=== PATIENT | male | born 1955 | race Caucasian/White ===

== ENCOUNTER 2017-12-14 12:10 | Observation (INO) | payer SELFPAY ==
[2017-12-11 12:46] VITALS: BMI 15.0
[~2017-12-14] VITALS: Ht 170.2 cm; Wt 44.5 kg
[2017-12-14] VITALS (9 sets, daily range): BP systolic 110–136; BP diastolic 76–90; PULSE 76–99; TEMP 36.5–36.9; O2SAT 95–100
[~2017-12-14 12:10] MED LIST: ASPITAB71 PO; FOLI1TAB8 PO; IBUP-103 PO; LACTATED RINGER'S 1000ML 1,000 ML IV SCH; MULT-506 PO; NUTR-977 PO; OXYC-90 PO; PANT40TA PO; THIA100T10 PO
--- NOTE | 2017-12-14 14:18 | History & Physical Bridge Note ---
H&P Re-Evaluation Bridge Note: I have examined the patient, reviewed the History & Physical and in the interval since the performance of the History & Physical I have noted the following changes of clinical significance: No changes noted at bedside all questions answered wants to go home after procedure if possible
[2017-12-14] MEDS ORDERED: NEOSTIGMINE METHYLSULFATE 5 MG/5 ML SYR ONE (14:30)
[2017-12-14] MEDS ORDERED: PROPOFOL IV EMULSION 10 MG/ML 20 ML VIAL ONE (14:30)
[2017-12-14] MEDS ORDERED: DEXAMETHASONE SOD INJ 4 MG/ML VIAL ONE (14:30)
[2017-12-14] MEDS ORDERED: ONDANSETRON INJ 2 MG/ML 2 ML VIAL ONE (14:30)
[2017-12-14] MEDS ORDERED: LIDOCAINE HCL 2% 2 ML VIAL (20MG/ML) ONE (14:30)
[2017-12-14] MEDS ORDERED: GLYCOPYRROLATE INJ 0.2 MG/ML VIAL ONE (14:30)
[2017-12-14] MEDS ORDERED: MIDAZOLAM HCL 1 MG/ML 2ML VIAL ONE (14:31)
[2017-12-14] MEDS ORDERED: FENTANYL CITRATE INJ 50 MCG/1 ML 2 ML VIAL ONE ×3 (14:31→16:49)
[2017-12-14] MEDS ORDERED: BUPIVACAINE 0.5 % 5 MG/1 ML PF 10ML VIAL ONE (14:43)
[2017-12-14] MEDS ORDERED: ALBUMIN HUMAN 5% 12.5 GM/250 ML VIAL IV ONE (15:02)
--- NOTE | 2017-12-14 16:14 | [facility] Post Operative Brief Note ---
Immediate Operative Summary Operative Date Dec 14, 2017. Pre-Operative Diagnosis Abdominal mass Post-Operative Diagnosis inflamatory changes pancreas and ant stomach Procedure(s) Performed exp laparoscopy, peritoneal washing biopsy tayler hepatis node, biopsy pancreatic necrosis and fibrotuic tissue ant stomach greater curvature Surgeon Dr. Garcia Legal Practice Manager Surgeon(s) Justin Dean PA-C Estimated Blood Loss 50cc Findings See Below see post op Specimens Frozen #1 Lymph node tayler hepatis, picked up at 1527
[2017-12-14] MEDS ORDERED: MoRPHine SULFATE 2 MG/ML CARP IV PRN (16:30)
[2017-12-14] MEDS ORDERED: ONDANSETRON INJ 2 MG/ML 2 ML VIAL IV PRN ×2 (16:30→16:45)
[2017-12-14] MEDS ORDERED: ESMOLOL HCL 10 MG/ML 10 ML VIAL ONE (16:44)
[2017-12-14] MEDS ORDERED: ATROPINE SULFATE 0.1 MG/ML 5ML SYR IV PRN (16:45)
[2017-12-14] MEDS ORDERED: FENTANYL CITRATE INJ 50 MCG/1 ML 2 ML VIAL IV PRN (16:45)
[2017-12-14] MEDS ORDERED: NALOXONE HCL 0.4 MG/1 ML VIAL/CARP IV PRN (16:45)
[2017-12-14] MEDS ORDERED: FLUMAZENIL 0.1 MG/1 ML 10 ML VIAL IV PRN (16:45)
[2017-12-14] MEDS ORDERED: PROMETHAZINE HCL INJ 12.5 MG in SODIUM CHLORIDE 0.9% 50ML 50 ML IV PRN (16:45)
[2017-12-14] MEDS ORDERED: EpHEDrine SULFATE INJ 50 MG/ML AMP IV PRN (16:45)
--- NOTE | 2017-12-14 17:36 | Anesthesiology Progress Note ---
Anesthesia Post Op Note Date & Time Dec 14, 2017 at 17:35 Vital Signs Pain Intensity: 2 Vital Signs Past 12 Hours Date Time Temp Pulse Resp B/P (MAP) Pulse Ox O2 Delivery O2 Flow Rate FiO2 12/14/17 17:21 123/80 12/14/17 17:20 36.8 80 16 123/80 (97) 100 Nasal Cannula 2 12/14/17 17:18 84 17 100 12/14/17 17:18 84 17 12/14/17 17:16 123/76 12/14/17 17:14 117/77 12/14/17 17:13 83 19 100 12/14/17 17:13 83 19 12/14/17 17:08 81 13 100 12/14/17 17:08 81 13 12/14/17 17:07 83 11 100 12/14/17 17:07 83 11 12/14/17 17:02 81 16 12/14/17 17:02 81 16 100 12/14/17 17:01 143/87 12/14/17 17:01 143/87 12/14/17 17:00 81 15 12/14/17 17:00 81 15 100 12/14/17 17:00 81 15 12/14/17 17:00 81 15 100 12/14/17 16:56 129/86 12/14/17 16:56 129/86 12/14/17 16:55 84 22 12/14/17 16:55 84 22 97 12/14/17 16:55 84 22 12/14/17 16:55 84 22 97 12/14/17 16:51 139/82 12/14/17 16:51 36.6 102 16 128/85 (112) 100 Room Air 12/14/17 16:51 139/82 12/14/17 16:50 90 14 97 12/14/17 16:50 90 14 97 12/14/17 16:50 90 14 12/14/17 16:50 90 14 12/14/17 16:46 128/83 128/83 12/14/17 16:46 128/83 128/83 12/14/17 16:45 92 12 97 12/14/17 16:45 92 12 97 12/14/17 16:45 92 12 12/14/17 16:45 92 12 12/14/17 16:41 138/86 12/14/17 16:41 138/86 12/14/17 16:40 98 17 97 12/14/17 16:40 99 17 12/14/17 16:40 99 17 12/14/17 16:40 98 17 97 12/14/17 16:37 128/85 12/14/17 16:37 128/85 12/14/17 16:35 108 25 99 12/14/17 16:35 98 25 12/14/17 16:35 98 25 12/14/17 16:35 108 25 99 12/14/17 12:38 36.7 99 18 110/90 (97) 100 Room Air Notes Mental Status: alert / awake / arousable, participated in evaluation Pt Amnestic to Procedure: Yes Nausea / Vomiting: adequately controlled Pain: adequately controlled Airway Patency, RR, SpO2: stable & adequate BP & HR: stable & adequate Hydration State: stable & adequate Anesthetic Complications: no major complications apparent
[2017-12-14] MEDS: OXYCODONE HCL IR 5 MG TAB (IMMEDIATE RELEASE) PO PRN (18:38)
[2017-12-14] MEDS ORDERED: IV FLUIDS COMPLETED PRN (19:00)
[2017-12-14] MEDS: PANTOprazole SOD 40 MG TAB PO SCH (20:52)
[2017-12-14] MEDS: MoRPHine SULFATE 2 MG/ML CARP IV PRN ×3 (20:54→23:28)
[2017-12-14] MEDS: LACTATED RINGER'S 1000ML 1,000 ML IV SCH (23:32)
[2017-12-15] MEDS: OXYCODONE HCL IR 5 MG TAB (IMMEDIATE RELEASE) PO PRN ×5 (01:33→20:16)
[2017-12-15 02:30] VITALS: BP 119/80; PULSE 84; TEMP 36.9; O2SAT 95
[2017-12-15] MEDS: MoRPHine SULFATE 2 MG/ML CARP IV PRN (04:24)
[2017-12-15 07:46] LABS: BASO % 0.1 %; BASO ABS # 0.01 K/uL (0-0.2); EOS % 1.1 %; EOS ABS # 0.09 K/uL (0-0.5); HEMATOCRIT 24.9 % (42-52); HEMOGLOBIN 8.2 g/dL (14.0-18.0); IG# 0.03 K/uL (0.00-0.02); LYMPH % 27.7 %; LYMPH ABS # 2.28 K/uL (1.2-3.4); MEAN CELL VOLUME 86.8 fL (80-100); MEAN CORPUSCULAR HEMOGLOBIN 28.6 pg (25-34); MEAN CORPUSCULAR HGB CONC 32.9 g/dl (32-36); MEAN PLATELET VOLUME 10.2 fL (7.4-10.4); MONO % 9.6 %; MONO ABS # 0.79 K/uL (0.11-0.59); NEUT % 61.1 %; NEUT ABS # 5.04 K/uL (1.4-6.5); PLATELET COUNT 368 K/uL (130-400); RED CELL DISTRIBUTION WIDTH CV 16.7 % (11.5-14.5); RED CELL DISTRIBUTION WIDTH SD 53.1 fL (36.4-46.3); WHITE BLOOD COUNT 8.24 K/uL (4.8-10.8)
[2017-12-15] MEDS: PANTOprazole SOD 40 MG TAB PO SCH ×2 (07:48→20:16)
[2017-12-15] MEDS ORDERED: OXYC-90 PO (07:50)
--- NOTE | 2017-12-15 07:52 | Discharge Instructions ---
Discharge Instructions Date of Service Dec 15, 2017. Admission Reason for Admission: Abdominal Mass Discharge Discharge Diagnosis / Problem: laparoscopic biopsy Discharge Goals Goal(s): Decrease discomfort Activity Recommendations Activity Limitations: as noted below Lifting Limitations: no more than 10 pounds Shower/Bathe: no limitations Driving or Machine Use: resume 3 days after discharge . Instructions / Follow-Up Instructions / Follow-Up Dr. Garcia in 1 week, call [phone] if you have any questions or need to schedule an appt Current Hospital Diet Patient's current hospital diet: Full Liquid Diet Discharge Diet Recommended Diet: Regular Diet Procedures Procedures Performed: exp laparoscopy, peritoneal washing biopsy tayler hepatis node, biopsy pancreatic necrosis and fibrotuic tissue ant stomach greater curvature Pending Studies Studies pending at discharge: yes List of pending studies: pathology Medical Emergencies . Who to Call and When: Medical Emergencies: If at any time you feel your situation is an emergency, please call 911 immediately. . Non-Emergent Contact Non-Emergency issues call your: Surgeon Call Non-Emergent contact if: you have a fever, temperature is above 101.5, your pain is not controlled, wound has increased drainage, wound has increased redness, you have any medication questions . "Provider Documentation" section prepared by Pal Dean. .
[2017-12-15 07:53] VITALS: BP 133/75; PULSE 92; TEMP 36.5; O2SAT 95
[2017-12-15 08:26] LABS: BLOOD UREA NITROGEN 5 mg/dl (7-18); CALCIUM 7.4 mg/dl (8.5-10.1); CARBON DIOXIDE 28 mmol/L (21-32); CREATININE 0.38 mg/dl (0.60-1.40); GLUCOSE 114 mg/dl (70-99); POTASSIUM 2.9 mmol/L (3.5-5.1); SODIUM 134 mmol/L (136-145)
[2017-12-15] MEDS: THIAMINE HCL 100 MG TAB PO SCH (08:27)
--- NOTE | 2017-12-15 08:41 | Surgery Progress Note ---
Surgery Progress Note Date of Service Dec 15, 2017. Subjective Post OP Day: 1 + complaints (abdominal pain), + pain controlled (IV), No nausea Objective Vital Signs: Date Time Temp Pulse Resp B/P (MAP) Pulse Ox O2 Delivery O2 Flow Rate FiO2 12/15/17 07:53 36.5 92 18 133/75 (94) 95 Room Air 12/15/17 02:30 36.9 84 16 119/80 (93) 95 Room Air 12/14/17 23:35 Room Air 12/14/17 23:00 36.7 97 16 120/80 (93) 97 Room Air 12/14/17 21:54 95 Room Air 12/14/17 20:42 36.9 91 16 123/76 (92) 99 Nasal Cannula 2.0 12/14/17 19:43 36.5 86 16 128/77 (94) 99 Nasal Cannula 2.0 12/14/17 18:42 80 18 136/79 (98) 100 Nasal Cannula 2.0 12/14/17 18:40 Nasal Cannula 2.0 12/14/17 18:35 36.6 12/14/17 18:12 76 16 130/81 (97) 100 Nasal Cannula 2.0 12/14/17 17:40 Nasal Cannula 2.0 12/14/17 17:39 36.6 76 16 123/78 (93) 100 Nasal Cannula 2.0 12/14/17 17:21 123/80 12/14/17 17:20 36.8 80 16 123/80 (97) 100 Nasal Cannula 2 12/14/17 17:18 84 17 100 12/14/17 17:18 84 17 12/14/17 17:16 123/76 12/14/17 17:14 117/77 12/14/17 17:13 83 19 100 12/14/17 17:13 83 19 12/14/17 17:08 81 13 100 12/14/17 17:08 81 13 12/14/17 17:07 83 11 100 12/14/17 17:07 83 11 12/14/17 17:02 81 16 12/14/17 17:02 81 16 100 12/14/17 17:01 143/87 12/14/17 17:01 143/87 12/14/17 17:00 81 15 12/14/17 17:00 81 15 100 12/14/17 17:00 81 15 12/14/17 17:00 81 15 100 12/14/17 16:56 129/86 12/14/17 16:56 129/86 12/14/17 16:55 84 22 12/14/17 16:55 84 22 97 12/14/17 16:55 84 22 12/14/17 16:55 84 22 97 12/14/17 16:51 139/82 12/14/17 16:51 36.6 102 16 128/85 (112) 100 Room Air 12/14/17 16:51 139/82 12/14/17 16:50 90 14 97 12/14/17 16:50 90 14 97 12/14/17 16:50 90 14 12/14/17 16:50 90 14 12/14/17 16:46 128/83 128/83 12/14/17 16:46 128/83 128/83 12/14/17 16:45 92 12 97 12/14/17 16:45 92 12 97 12/14/17 16:45 92 12 12/14/17 16:45 92 12 12/14/17 16:41 138/86 12/14/17 16:41 138/86 12/14/17 16:40 98 17 97 12/14/17 16:40 99 17 12/14/17 16:40 99 17 12/14/17 16:40 98 17 97 12/14/17 16:37 128/85 12/14/17 16:37 128/85 12/14/17 16:35 108 25 99 12/14/17 16:35 98 25 12/14/17 16:35 98 25 12/14/17 16:35 108 25 99 12/14/17 12:38 36.7 99 18 110/90 (97) 100 Room Air Abdomen: non distended, soft Incision(s): clean, dry, no drainage (lateral port was draing irrigant in OR but dressing is dry this AM) Laboratory Results: Results Past 24 Hours Test 12/15/17 07:19 Range/Units White Blood Count 8.24 4.8-10.8 K/uL Red Blood Count 2.87 4.7-6.1 M/uL Hemoglobin 8.2 14.0-18.0 g/dL Hematocrit 24.9 42-52 % Mean Corpuscular Volume 86.8 80-100 fL Mean Corpuscular Hemoglobin 28.6 25-34 pg Mean Corpuscular Hemoglobin Concent 32.9 32-36 g/dl Platelet Count 368 130-400 K/uL Mean Platelet Volume 10.2 7.4-10.4 fL Neutrophils (%) (Auto) 61.1 % Lymphocytes (%) (Auto) 27.7 % Monocytes (%) (Auto) 9.6 % Eosinophils (%) (Auto) 1.1 % Basophils (%) (Auto) 0.1 % Neutrophils # (Auto) 5.04 1.4-6.5 K/uL Lymphocytes # (Auto) 2.28 1.2-3.4 K/uL Monocytes # (Auto) 0.79 0.11-0.59 K/uL Eosinophils # (Auto) 0.09 0-0.5 K/uL Basophils # (Auto) 0.01 0-0.2 K/uL RDW Standard Deviation 53.1 36.4-46.3 fL RDW Coefficient of Variation 16.7 11.5-14.5 % Immature Granulocyte % (Auto) 0.4 % Immature Granulocyte # (Auto) 0.03 0.00-0.02 K/uL Red Blood Cell Morphology Unremarkable Sodium Level 134 136-145 mmol/L Potassium Level 2.9 3.5-5.1 mmol/L Chloride Level 100 98-107 mmol/L Carbon Dioxide Level 28 21-32 mmol/L Anion Gap 6.0 3-11 mmol/L Blood Urea Nitrogen 5 7-18 mg/dl Creatinine 0.38 0.60-1.40 mg/dl Est Creatinine Clear Calc Drug Dose 128.6 ml/min Estimated GFR () > 150.0 Estimated GFR (Non- 130.9 BUN/Creatinine Ratio 12.6 10-20 Random Glucose 114 70-99 mg/dl Calcium Level 7.4 8.5-10.1 mg/dl Chemistry Specimen Hemolysis Assessment & Plan s/p diagnostic laparoscopy, biopsy for 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 Garcia
[2017-12-15] MEDS: BOOST BREEZE NUTRITION DRINK 1 BOX PO SCH ×2 (10:14→18:00)
--- NOTE | 2017-12-15 11:18 | OPERATIVE REPORT ---
DATE OF OPERATION: 12/14/2017 PREOPERATIVE DIAGNOSIS: Abdominal mass, possible abdominal carcinomatosis. POSTOPERATIVE DIAGNOSIS: Necrotic pancreas. PROCEDURE: Laparoscopy, peritoneal lavage, biopsy of a triangle of Calot node, biopsy of peripancreatic tissue, biopsy of necrotic pancreas and tissue. SUMMARY: The patient was brought in to the operating room theater. The abdomen was prepped with Betadine solution and properly draped. I made a small incision supraumbilically sufficient enough to place a Veress needle followed by CO2 followed by a 5 mm trocar. On entry into the abdomen, the patient had no evidence of any peritoneal implants in the abdominal wall anteriorly. We were able to visualize the omentum and appeared to be what we saw grossly normal with no evidence of any implants. We were suspicious that patient may have had an abdominal carcinomatosis significant because of his weight loss and the CAT scan question whether or not may have abdominal carcinomatosis. At this point, we inspected the liver grossly and it appeared normal even though the patient is an extremely heavy drinker. I elected to place a 5 mm port in the epigastric area and then ended up with 2 ports in the subcostal area sufficient enough to visualize and inspect the abdomen pretty thoroughly. At this side, we were able to identify that the patient has some fine adhesions between the left lobe of the liver and the anterior abdominal wall. These were broken down. The left lobe came down, and what we could see above the left lobe of the liver adjacent and adherent to the abdominal wall superior to it, there seemed to be a 2-3 cm solid structure, almost looks like liver, but it looked like it may be an organized hematoma. He had a few of these areas also on the right side of the lobe of the liver, whether or not that these were due to a fall that patient may have inadvertently bled. Having said this, we then placed the gallbladder under traction, which was grossly normal. It was deflated. We then in the triangle of Calot area found a nodule that was consistent with what appeared to be a lymph node and sent that out for frozen section. We then inspected more thoroughly, elevated the omentum completely around, which was grossly normal, no evidence of any implants. Of note, before we took any biopsies, we had placed normal saline in the abdomen, irrigated it, placed in Luken trap to get the abdominal washings. These will be sent for permanent. After accomplishing this, the patient has had a very thickened stomach and second portion of duodenum to the third portion of duodenum. He has had endoscopy before, and it was nondiagnostic. On the surface of these 2 structures, I could not feel anything suspicious of any malignancy. It appeared to be as stated somewhat thickened. We followed this around along the greater omentum. We elevated the omentum sufficiently enough at this time that we could visualize the transverse colon, and it appeared to be grossly normal. As we elevated the transverse colon, we could see some necrosis right at the ligament of Treitz in the pancreatic area, some fat necrosis with some nodularities. We took multiple specimens of this. The actual pancreas itself was black over surrounding tissue reminiscent of possibly a hemorrhagic pancreatitis or a significant pancreatitis that the patient may have had. Once we had completed this, the duodenum around the area looked normal, just some edema was appreciated. We then elevated and then palpated the anterior surface of the stomach where at the fundus area it was quite hardened. We were suspicious there was something on the wall of the stomach localized in that area. We went along the greater curvature, and there was a pseudocapsule apparent as there was a fibrotic tissue coming off the stomach onto the greater curvature area. As we elevated this up, we again were met with significant amount of necrotic black tissue, probably with apparent pancreatic necrotizing pattern. As we took that out, we could see the edge of the spleen and it appeared to be normal. We also took multiple biopsies of this peritoneum in different areas. In summary, at this time, I was not able to identify any malignancy or suspicion of malignancy of what we could see. Of note, the path report on the node that we sent for frozen section was inconclusive, but I did talk with Dr. Altman, the pathologist, and he would have more time to look at and give us with more final answer and a permanent. At this time, I did not feel that we needed to do anything further to the patient. There was a little bleeder at the greater curvature area that I packed off with some Surgicel and it stopped. Individual trocars removed. The wounds were closed with 3-0 Monocryl. Steri-Strips applied. Procedure was tolerated well by the patient. Estimated blood loss approximately 50 mL. The patient was taken to recovery room in good condition. I attest to the content of the Intraoperative Record and any orders documented therein. Any exception s are noted below.
[2017-12-15] MEDS: LACTATED RINGER'S 1000ML 1,000 ML IV SCH (11:58)
--- NOTE | 2017-12-15 12:59 | Anesthesiology Progress Note ---
Anesthesia Post Op Note Date & Time Dec 15, 2017 at 12:58 Vital Signs Pain Intensity: 6.0 Vital Signs Past 12 Hours Date Time Temp Pulse Resp B/P (MAP) Pulse Ox O2 Delivery O2 Flow Rate FiO2 12/15/17 11:20 Room Air 12/15/17 07:53 36.5 92 18 133/75 (94) 95 Room Air 12/15/17 07:40 Room Air 12/15/17 02:30 36.9 84 16 119/80 (93) 95 Room Air Notes Mental Status: alert / awake / arousable, participated in evaluation Pt Amnestic to Procedure: Yes Nausea / Vomiting: adequately controlled Pain: adequately controlled Airway Patency, RR, SpO2: stable & adequate BP & HR: stable & adequate Hydration State: stable & adequate Anesthetic Complications: no major complications apparent
[2017-12-15 15:14] VITALS: BP 147/84; PULSE 86; TEMP 36.6; O2SAT 95
[2017-12-15 16:07] VITALS: Ht 170.2 cm; Wt 44.5 kg
[2017-12-15 22:55] VITALS: BP 148/80; PULSE 106; TEMP 37.2; O2SAT 96
[2017-12-16] MEDS: OXYCODONE HCL IR 5 MG TAB (IMMEDIATE RELEASE) PO PRN ×3 (00:23→12:24)
[2017-12-16 06:36] LABS: BASO % 0.1 %; BASO ABS # 0.01 K/uL (0-0.2); EOS % 0.9 %; EOS ABS # 0.09 K/uL (0-0.5); HEMATOCRIT 23.7 % (42-52); HEMOGLOBIN 7.9 g/dL (14.0-18.0); IG# 0.02 K/uL (0.00-0.02); LYMPH % 18.4 %; LYMPH ABS # 1.88 K/uL (1.2-3.4); MEAN CELL VOLUME 84.9 fL (80-100); MEAN CORPUSCULAR HEMOGLOBIN 28.3 pg (25-34); MEAN CORPUSCULAR HGB CONC 33.3 g/dl (32-36); MEAN PLATELET VOLUME 10.2 fL (7.4-10.4); MONO % 7.8 %; NEUT % 72.6 %; PLATELET COUNT 347 K/uL (130-400); RED CELL DISTRIBUTION WIDTH CV 16.2 % (11.5-14.5); RED CELL DISTRIBUTION WIDTH SD 50.4 fL (36.4-46.3)
[2017-12-16 07:07] LABS: BLOOD UREA NITROGEN 5 mg/dl (7-18); CALCIUM 7.6 mg/dl (8.5-10.1); CARBON DIOXIDE 25 mmol/L (21-32); CREATININE 0.24 mg/dl (0.60-1.40); GLUCOSE 110 mg/dl (70-99); POTASSIUM 2.8 mmol/L (3.5-5.1); SODIUM 129 mmol/L (136-145)
--- NOTE | 2017-12-16 07:22 | SURGERY PROGRESS NOTE ---
DATE: 12/16/2017 Dale is fairly comfortable. He is having no abdominal pain. He has tolerated some liquids yesterday. The path report had shown which showed no evidence of malignancy. This was discussed with the patient. His last vitals showed a temperature of 37.2, pulse 106, respirations 18, blood pressure 148/80, O2 sats 96 on room air. He had 400 mL urine overnight. The abdomen is completely benign. The trocar sites are healing well. At this point, Dale certainly can be discharged home. I suspect the primary problem for this gentleman how long is the necrotizing pancreatitis. I will discuss the case with the high school industrial arts teacher but at this point I will certainly increase his oral intake as much and try to get some weight on him. The good sign is that he has stopped drinking. we will discuss with the patient and his yesterday after surgery. At that time, we did not have the path report, but I am suspicious that these are going to be benign. We will discuss the findings with her also. The patient should not drive for approximately 1 week and if he does drive then should not lift anything heavier than 10 pounds. Of note, when he is in the hospital, he can ambulate to the bathroom without any problem. When I saw him in the office a week ago, the gentleman was pretty much on a wheelchair, I am not sure what went on that he actually is feeling better since he has been on admission. CHICA
[2017-12-16 07:43] VITALS: BP 134/85; PULSE 102; TEMP 36.5; O2SAT 94
[2017-12-16] MEDS ORDERED: POTASSIUM CHLORIDE 20 MEQ TABCR PO ONE (07:45)
[2017-12-16] MEDS: BOOST BREEZE NUTRITION DRINK 1 BOX PO SCH (08:44)
[2017-12-16] MEDS: THIAMINE HCL 100 MG TAB PO SCH (08:45)
[2017-12-16] MEDS: PANTOprazole SOD 40 MG TAB PO SCH (08:45)
[2017-12-16 12:09] VITALS: BP 134/85; PULSE 102; TEMP 36.5; O2SAT 94
--- NOTE | 2017-12-19 16:09 | DISCHARGE SUMMARY ---
PRIMARY DISCHARGE DIAGNOSES: 1. Abdominal mass, final pathology report of fat necrosis. 2. History of alcohol abuse. PROCEDURE PERFORMED: Laparoscopy with peritoneal washings, biopsy of lymph node in triangle of Calot, biopsy of peripancreatic tissue, and necrotic appearing pancreas. HOSPITAL COURSE: Patient is a 62-year-old male with abdominal masses on CT and weight loss concerning for a carcinoma. He was taken to the operating room for laparoscopy. We identified several areas of what grossly appeared to be fat necrosis along the greater curvature of the stomach as well as necrosis in the peripancreatic area near the ligament of Treitz. The pathology results of these biopsies all showed fat necrosis with reactive cellular changes. The peritoneal washings are still pending. The patient was transferred to the surgical floor postoperatively for observation. On postoperative day 1, he continued to require IV analgesics. By postoperative day 2, his pain was managed with oral analgesics. He was tolerating a regular diet. His incisions were clean and dry. He was stable for discharge. DISCHARGE INSTRUCTIONS: He was discharged home. Follow up with Dr. Garcia in 1 week. Continue diet as tolerated and nutritional supplements. He has recently stopped his alcohol consumption. DISCHARGE MEDICATIONS: Oxycodone IR 5-10 mg every 6 hours as needed. He was given additional 20 tablets to supplement his previous home regimen of 5 mg p.o. every 6 hours. Continue other home medications of val.[email or web address] Urbina, Ensure 1 can b.i.d., folic acid 1 mg daily, Advil 200-400 mg as needed, daily multivitamin, Protonix 40 mg b.i.d., and thiamine 100 mg daily. MTDD
== END 2017-12-16 12:30 | disposition home or self-care (01) ==
LOC: C.ACU 12:10 → C.MSW 16:26 → ENRESERV 17:03
PROVIDERS: ADMIT Surgery; ATTEND Surgery
DX: K86.89 Other specified diseases of pancreas (principal); R19.00 Intra-abdominal and pelvic swelling, mass and lump, unspecified site; F17.200 Nicotine dependence, unspecified, uncomplicated; Z86.19 Personal history of other infectious and parasitic diseases